=== PATIENT | male | born 1960 | race Caucasian/White ===

== ENCOUNTER 2023-05-23 08:12 | Day surgery (SDC) | payer BC, OTHER ==
[~2023-05-23 08:12] MED LIST: Lactated Ringers 1,000 ML IV SCH
[2023-05-23] MEDS ORDERED: Propofol 200 MG/20 ML SDV ONE ×2 (09:33→09:48)
[2023-05-23] MEDS ORDERED: fentaNYL 100 MCG/2 ML SDV ONE (09:33)
== END 2023-05-23 11:47 | disposition home or self-care (01) ==
LOC: VM.SDS 08:12
PROVIDERS: ATTEND Surgery
DX: Z12.11 Encounter for screening for malignant neoplasm of colon (principal); D12.6 Benign neoplasm of colon, unspecified; K21.9 Gastro-esophageal reflux disease without esophagitis; E11.65 Type 2 diabetes mellitus with hyperglycemia; E78.5 Hyperlipidemia, unspecified; I10 Essential (primary) hypertension; G47.00 Insomnia, unspecified; F41.9 Anxiety disorder, unspecified; F32.A Depression, unspecified; Z88.0 Allergy status to penicillin; Z90.81 Acquired absence of spleen; Z79.899 Other long term (current) drug therapy
CPT/HCPCS: 00811; 82947; J2704; J3010; J7120

== ENCOUNTER 2024-05-08 19:56 | Emergency (ER) | payer BC ==
[2024-05-08] MEDS ORDERED: Bacitracin Oint 1 GM U/D Packet TOP ONE (20:10)
[2024-05-08] MEDS: Lidocaine 1% 10 ML MDV INJECT ONE (20:52)
== END 2024-05-08 20:20 | disposition home or self-care (01) ==
LOC: VM.ED 19:56
DX: S61.411A Laceration without foreign body of right hand, initial encounter (principal); I10 Essential (primary) hypertension; E78.00 Pure hypercholesterolemia, unspecified; K21.9 Gastro-esophageal reflux disease without esophagitis; E11.9 Type 2 diabetes mellitus without complications; Z79.899 Other long term (current) drug therapy; Z79.84 Long term (current) use of oral hypoglycemic drugs; Z88.0 Allergy status to penicillin; Z88.1 Allergy status to other antibiotic agents; W26.8XXA Contact with other sharp object(s), not elsewhere classified, initial encounter
CPT/HCPCS: 12002; 99282; 99283; J3490